=== PATIENT | male | born 1975 | race American Indian/Alaskan Native ===

== ENCOUNTER 2018-01-10 03:17 | Emergency (ER) | payer BC ==
[2018-01-10] MEDS ORDERED: ASPIRIN PO ONE (04:14)
[2018-01-10 04:57] LABS: Basophils % (Auto) 0.5 % (0.0-1.8); Eosinophils # (Auto) 0.2 K/mm3 (0.0-0.4); Eosinophils % (Auto) 2.4 % (0.0-4.3); Hematocrit 43.2 % (35.5-45.6); Hemoglobin 14.6 gm/dl (11.8-15.2); Lymphocytes % (Auto) 27.5 % (13.4-35.0); Mean Corpuscular HGB Conc 34 % (32-34); Mean Corpuscular Hemoglobin 31 pg (28-32); Mean Corpuscular Volume 92 fl (84-94); Monocytes # (Auto) 0.6 K/mm3 (0.0-0.8); Monocytes % (Auto) 8.1 % (0.0-7.3); Platelet Count 182 K/mm3 (140-440); Red Cell Distribution Width 13.9 % (13.2-15.2)
[2018-01-10 05:14] LABS: BUN/Creatinine Ratio 10; Blood Urea Nitrogen 15 mg/dL (9-20); Calcium 9.6 mg/dL (8.4-10.2); Hemolysis Index 9
--- NOTE | 2018-01-10 13:10 | Emergency Department Report ---
ED General Adult HPI - General Chief complaint: Chest Pain Stated complaint: SOB,DIZZY,LIGHT HEADEDNESS,LOW BLOOD PRESSURE Time Seen by Provider: 01/10/18 12:54 Source: patient, RN notes reviewed Mode of arrival: Ambulatory Limitations: No Limitations - History of Present Illness Initial comments: This is a 42-year-old male who is not known to this provider previously. He does not have a local primary care doctor, and he denies chronic medical conditions. He presents to the ER with multiple complaints. His first complaint is left-sided chest wall pressure that radiates to the left arm. It only radiates to the left medial humerus. It is achy, and does not rate the back, neck. He reports feeling like he was him was going to pass out. However this has since resolved. He also reports feeling like his breathing was heavy, but not short of breath per se. The patient denies recent aspirin use, cocaine use. He denies leg pain, leg swelling, but reports multiple recent trips within the past month. He denies hematemesis and bright red blood per rectum. He also complains of bilateral/bitemporal headache, and occipital headache. This headache started 3-4 days ago. It is intermittent. It is achy, crampy and described as a migraine. The headache is not sudden, or thunderclap in nature. It did not reach maximal intensity within an hour. He reports that the headache was strongest 2 days ago. It was strongest one day after it started. He denies caffeine ingestion, and reports that he is getting 68 hours of sleep per night. He reports no symptoms consistent with obstructive sleep apnea. His corroborates that he does not snore in bed at night. -: Gradual Location: head, chest Radiation: non-radiation Quality: aching Consistency: intermittent Improves with: none Worsens with: none Associated Symptoms: chest pain, headaches, shortness of breath. denies: confusion, cough, diaphoresis, fever/chills, loss of appetite, malaise, nausea/ vomiting, rash, seizure, syncope (near syncope), weakness - Related Data Previous Rx's Medication Instructions Recorded Last Taken Type Aspirin [Aspirin BABY CHEW TAB] 81 mg PO QDAY #30 tab.chew 01/10/18 Unknown Rx Allergies Allergy/AdvReac Type Severity Reaction Status Date / Time No Known Allergies Allergy Unverified 01/10/18 04:14 ED Review of Systems ROS: Stated complaint: SOB,DIZZY,LIGHT HEADEDNESS,LOW BLOOD PRESSURE Other details as noted in HPI Comment: All other systems reviewed and negative ED Past Medical Hx - Past Medical History Previous Medical History?: No - Surgical History Past Surgical History?: No - Social History Smoking Status: Current Every Day Smoker Substance Use Type: None - Medications Home Medications: Home Medications Medication Instructions Recorded Confirmed Last Taken Type Aspirin [Aspirin BABY CHEW TAB] 81 mg PO QDAY #30 tab.chew 01/10/18 Unknown Rx ED Physical Exam - General Limitations: No Limitations General appearance: alert, in no apparent distress - Head Head exam: Present: atraumatic, normocephalic - Eye Eye exam: Present: normal appearance, PERRL, EOMI, other (visual acuity intact to finger counting, color perception, reading at a close distance). Absent: nystagmus - ENT ENT exam: Present: normal exam, normal orophraynx, mucous membranes moist, normal external ear exam - Neck Neck exam: Present: normal inspection, full ROM, other (there is no carotid bruit). Absent: tenderness, meningismus - Respiratory Respiratory exam: Present: normal lung sounds bilaterally. Absent: respiratory distress, chest wall tenderness - Cardiovascular Cardiovascular Exam: Present: regular rate, normal rhythm, normal heart sounds. Absent: bradycardia, tachycardia, irregular rhythm, systolic murmur, diastolic murmur, rubs, gallop - GI/Abdominal GI/Abdominal exam: Present: soft, normal bowel sounds. Absent: distended, tenderness, guarding, rebound, rigid, pulsatile mass - Rectal Rectal exam: Present: deferred - Extremities Exam Extremities exam: Present: normal inspection, full ROM, normal capillary refill , other (2+ pulses noted in the bilateral upper, lower extremities. Compartments soft. No long bony tenderness. The pelvis is stable.). Absent: tenderness, pedal edema, joint swelling, calf tenderness - Back Exam Back exam: Present: normal inspection, full ROM. Absent: tenderness, CVA tenderness (R), paraspinal tenderness, vertebral tenderness - Neurological Exam Neurological exam: Present: alert, oriented X3, CN II-XII intact, normal gait ( there is no pass pointing. There is a normal [id number]. There is negative pronator drift.), other (Extraocular movements intact. Tongue midline. No facial droop. Facial sensation intact to light touch in the V1, V2, V3 distribution bilaterally. 5 and 5 strength in 4 extremities.. Sensation is intact to light touch in 4 extremities.). Absent: motor sensory deficit - Psychiatric Psychiatric exam: Present: anxious - Skin Skin exam: Present: warm, dry, intact, normal color. Absent: rash ED Course Vital Signs 01/10/18 01/10/18 03:23 16:09 Temperature 98.2 F Pulse Rate 92 H 51 L Respiratory 18 20 Rate Blood Pressure 115/77 Blood Pressure 102/68 [Left] O2 Sat by Pulse 95 100 Oximetry - Reevaluation(s) Reevaluation #1: 01/10/18 13:31 Differential diagnosis, including but not limited to: Migraine headache, tension headache, cluster headache, orthostasis, vagal event, structural cardiac disease, pulmonary embolus, acute coronary syndrome, pneumonia Assessment and plan: 42-year-old male with 2 complaints. In terms of the patient's chest pain and near syncope, troponin negative 3, patient has been observed in the ER for almost 10 hours without clinical decompensation, has had stable vital signs and 3 negative troponins. Low risk by ELIZABET score, low risk by heart score, indicates no family history of cardiac disease that he is aware of. Patient endorses he prefers to follow up with outpatient cardiology to complete an ACS pressure medication. Patient and I had an extensive discussion regarding his various options for cardiac risk stratification, and patient understands that he is at low risk for major adverse cardiac event. Patient was offered hospital admission as an alternative, although medically I don't think that it is necessary since he indicates he will follow-up as an outpatient and indicates he is reliable to do so. The patient and I have made this decision together through shared decision making. Low risk by well's criteria, perc negative, but given recent reported history of multiple trips, we will check a d-dimer. EKG is unremarkable/unchanged 2. In terms of the patient's headache, he has a GCS of 15, with an anion score of 0 , a normal neurologic examination, and has no symptoms at this time. His history and physical are not consistent/suggestive of ischemic or hemorrhagic stroke. We will obtain a noncontrast CT scan of the brain to exclude gross structural intracranial disease. 01/10/18 13:33 Reevaluation #2: 01/10/18 15:13 D-[address]. CT scan of the brain negative. Patient feels improved. No additional syncopal episodes. Patient will be discharged with instructions to follow up. ED Medical Decision Making - Lab Data Result diagrams: 01/10/18 04:19 01/10/18 04:19 Vital Signs 01/10/18 03:23 Temperature 98.2 F Pulse Rate 92 H Respiratory 18 Rate Blood Pressure 115/77 O2 Sat by Pulse 95 Oximetry Lab Results 01/10/18 01/10/18 01/10/18 Range/Units 04:19 04:19 07:24 WBC 7.3 (4.5-11.0) K/mm3 RBC 4.70 (3.65-5.03) M/mm3 Hgb 14.6 (11.8-15.2) gm/dl Hct 43.2 (35.5-45.6) % MCV 92 (84-94) fl MCH 31 (28-32) pg MCHC 34 (32-34) % RDW 13.9 (13.2-15.2) % Plt Count 182 (140-440) K/mm3 Lymph % (Auto) 27.5 (13.4-35.0) % Duchesne % (Auto) 8.1 H (0.0-7.3) % Eos % (Auto) 2.4 (0.0-4.3) % Baso % (Auto) 0.5 (0.0-1.8) % Lymph # 2.0 (1.2-5.4) K/mm3 Duchesne # 0.6 (0.0-0.8) K/mm3 Eos # 0.2 (0.0-0.4) K/mm3 Baso # 0.0 (0.0-0.1) K/mm3 Seg Neutrophils % 61.5 (40.0-70.0) % Seg Neutrophils # 4.5 (1.8-7.7) K/mm3 Sodium 140 (137-145) mmol/L Potassium 4.1 (3.6-5.0) mmol/L Chloride 100.8 (98-107) mmol/L Carbon Dioxide 26 (22-30) mmol/L Anion Gap 17 mmol/L BUN 15 (9-20) mg/dL Creatinine 1.5 (0.8-1.5) mg/dL Estimated GFR > 60 ml/min BUN/Creatinine Ratio 10 % Glucose 124 H (75-100) mg/dL Calcium 9.6 (8.4-10.2) mg/dL Troponin T < 0.010 < 0.010 (0.00-0.029) ng/mL 01/10/18 Range/Units 10:50 WBC (4.5-11.0) K/mm3 RBC (3.65-5.03) M/mm3 Hgb (11.8-15.2) gm/dl Hct (35.5-45.6) % MCV (84-94) fl MCH (28-32) pg MCHC (32-34) % RDW (13.2-15.2) % Plt Count (140-440) K/mm3 Lymph % (Auto) (13.4-35.0) % Duc[place]ne % (Auto) (0.0-7.3) % Eos % (Auto) (0.0-4.3) % Baso % (Auto) (0.0-1.8) % Lymph # (1.2-5.4) K/mm3 Duc[place]ne # (0.0-0.8) K/mm3 Eos # (0.0-0.4) K/mm3 Baso # (0.0-0.1) K/mm3 Seg Neutrophils % (40.0-70.0) % Seg Neutrophils # (1.8-7.7) K/mm3 Sodium (137-145) mmol/L Potassium (3.6-5.0) mmol/L Chloride (98-107) mmol/L Carbon Dioxide (22-30) mmol/L Anion Gap mmol/L BUN (9-20) mg/dL Creatinine (0.8-1.5) mg/dL Estimated GFR ml/min BUN/Creatinine Ratio % Glucose (75-100) mg/dL Calcium (8.4-10.2) mg/dL Troponin T < 0.010 (0.00-0.029) ng/mL - EKG Data -: EKG Interpreted by Ar EKG shows normal: sinus rhythm, axis, intervals, QRS complexes, ST-T waves - EKG Data When compared to previous EKG there are: previous EKG unavailable 01/10/18 13:37 EKG #1 shows normal sinus, 85 bpm, normal axis, normal intervals, not a STEMI. EKG #2 is unchanged. - Radiology Data Radiology results: pending Critical care attestation.: If time is entered above; I have spent that time in minutes in the direct care of this critically ill patient, excluding procedure time. ED Disposition Clinical Impression: Near syncope, Headache, Chest pain Disposition: - TO HOME OR SELFCARE Is pt being admited?: No Does the pt Need Aspirin: No Condition: Stable Instructions: Chest Pain (ED), Near Syncope (ED) Additional Instructions: Discharge diagnosis: Headache, chest pain, near syncope Take the medication as directed. Follow up with either of the listed cardiology practices within the next 3-5 days. Return to the ER right away with new pain, worsened pain, migration of pain, fevers, chills, lethargy, irritability, recurrent loss of consciousness, worsening pain, inability to tolerate liquid feeds. X-ray of the chest demonstrated nonspecific calcified abnormality. This is a small finding, incidental, and likely not of any significance. However, it should be followed up by a primary care doctor within the next 4-6 weeks. Repeat imaging is recommended in 6 months. Not following up as recommended may result an undiagnosed tumor, cancer, malignancy. Prescriptions: Aspirin [Aspirin BABY CHEW TAB] 81 mg PO QDAY #30 tab.chew Referrals: [facility] [Other] - 3-5 Days [facility] [Provider Group] - 3-5 Days [facility] [Provider Group] - 3-5 Days Forms: Accompanied Note, Work/School Release Form(ED)
[2018-01-10 13:41] LABS: INR 0.87 (0.87-1.13)
[2018-01-10 13:42] LABS: Partial Thromboplastin Time 27.1 Sec. (24.2-36.6)
--- NOTE | 2018-01-10 14:14 | XRay Report ---
Chest 2 views: History: Chest pain near syncope. Findings: Normal cardiomediastinal silhouette. Trachea is midline. No consolidation, pneumothorax or pleural effusion. Tiny 3mm radiopaque density right perihilar area probably calcified or noncalcified granuloma. 6 month followup recommended. Impression: No acute cardiopulmonary findings. Findings as detailed above.
--- NOTE | 2018-01-10 15:08 | Cat Scan Report ---
FINAL REPORT PROCEDURE: CT HEAD/BRAIN WO CON TECHNIQUE: Computerized tomography of the head was performed without contrast material. HISTORY: headache COMPARISON: No prior studies are available for comparison. FINDINGS: Brain: Brain density appears normal. No evidence of intracranial hemorrhage. No parenchymal hemorrhage, mass lesions or mass effect are seen. No abnormal extraxial fluid collects or masses are seen. Ventricles: Ventricles are normal size and are midline. Bone Windows: No evidence of skull fracture. Paranasal sinuses: There is patchy mucosal disease several of the anterior ethmoid air cells on the right. Visualized portions of the paranasal sinuses otherwise are clear. Mastoid air cells: Visualized portions are clear. IMPRESSION: Mild paranasal sinus disease as described otherwise negative unenhanced CT scan of the brain.
[2018-01-10 16:10] VITALS: BP 102/68
== END 2018-01-10 16:09 | disposition home or self-care (01) ==
LOC: ED 03:17
DX: R07.89 Other chest pain (principal); R55 Syncope and collapse; R51 Headache; R06.02 Shortness of breath; F17.200 Nicotine dependence, unspecified, uncomplicated
CPT/HCPCS: 36415; 70450; 71046; 80048; 84484; 85025; 85379; 85610; 85730; 93005; 93010